=== PATIENT | female | born 1945 | race African-American/Black ===

== ENCOUNTER 2023-09-05 09:29 | Outpatient (CLI) | payer MEDICARE ==
[2023-09-05] MEDS ORDERED: Iopamidol 370 76% 100 ML VIAL ONE (12:45)
== END 2023-09-05 09:30 | disposition home or self-care (01) ==
LOC: CSHCT 09:29
PROVIDERS: ATTEND Neurological Surgery
DX: I67.1 Cerebral aneurysm, nonruptured (principal)
CPT/HCPCS: 70496; 82565; Q9967